=== PATIENT | female | born 1985 | race Asian ===

== ENCOUNTER 2021-08-16 00:05 | Inpatient (IN) ==
[2021-08-17 01:08] LABS: Hematocrit 32 % (35-47); Hemoglobin 10.3 g/dL (12.0-16.0); Mean Corpuscular HGB Conc 33 g/dL (31-36); Mean Corpuscular Hemoglobin 25 pg (27-31); Mean Corpuscular Volume 77 fL (80-97); Mean Platelet Volume 10.9 fL (7.4-10.4); Platelet Count 111 10^3/uL (150-450); Red Cell Distribution Width 16 % (10-15)
[2021-08-17] MEDS ORDERED: Lactated Ringers 1000 ml BAG 1,000 ML IV ONE (01:23)
[2021-08-17] MEDS ORDERED: Buffered Lidocaine 1% SYRIN 1 ml INTRADERM ONE (01:23)
[2021-08-17] MEDS ORDERED: ceFOXitin 2 GM IVPREMIX 2 GM/50 ML BAG IVPB ONE (01:23)
[2021-08-17] MEDS ORDERED: Sodium Citrate/Citric Acid LIQ 15 ML UDC PO ONE (01:23)
[2021-08-17] MEDS ORDERED: Witch Hazel PAD JAR TOPICAL PRN (01:50)
[2021-08-17] MEDS ORDERED: Glycerin ADULT 2.4 gm SUPP PR PRN (01:50)
[2021-08-17] MEDS ORDERED: Dibucaine 1% OINT 28.35 GM TUBE PR PRN (01:50)
[2021-08-17 01:52] LABS: ABS Lymphocytes 1.4 10^3/ul (1.0-4.8); ABS Monocytes 0.6 10^3/ul (0-0.8); Eosinophil % 0.6 %
[2021-08-17] MEDS ORDERED: Lactated Ringers 1000 ml BAG 1,000 ML IV SCH ×2 (02:00)
[2021-08-17] MEDS ORDERED: Oxytocin in LR 20 UNITS/1,000 ML BAG IVPB SCH (02:00)
[2021-08-17] MEDS ORDERED: Ondansetron 4 mg VIAL 2 MG/ML 2 ml VIAL ONE (02:02)
[2021-08-17] MEDS ORDERED: Morphine PF AMP (0.5MG/ML) 5 MG/10 ML AMP ONE (02:02)
[2021-08-17] MEDS ORDERED: fentaNYL 100 mcg/2 ml 50 MCG/ML VIAL ONE (02:02)
[2021-08-17] MEDS ORDERED: Oxytocin 10 UNITS/ML 1 ML VIAL ONE (02:16)
[2021-08-17] MEDS ORDERED: Ondansetron 4 mg VIAL 2 MG/ML 2 ml VIAL IV PRN ×2 (02:17→02:18)
[2021-08-17] MEDS ORDERED: diPHENhydraMINE IV 50 MG/ML 1 ml VIAL (BENADRYL) IV PRN (02:17)
[2021-08-17] MEDS ORDERED: Naloxone 0.4 mg VIAL 0.4 mg/ml 1 ml VIAL IV PRN ×2 (02:17→02:18)
[2021-08-17] MEDS ORDERED: fentaNYL 100 mcg/2 ml 50 MCG/ML VIAL IV PRN (02:18)
[2021-08-17] MEDS ORDERED: Phenylephrine 40 mcg/mL 10mL (400mcg) SYRINGE ONE (02:18)
[2021-08-17] MEDS ORDERED: HYDROmorphone 1 MG/1 ML SYRINGE IV PRN (02:18)
[2021-08-17] MEDS ORDERED: Acetaminophen IV 1 GM/100ML 100 ML IV ONE (02:34)
[2021-08-17] MEDS ORDERED: EPHEDrine (Pressors) 50 MG/ML VIAL ONE (02:36)
[2021-08-17 02:50] LABS: Urine Appearance Clear; Urine Bilirubin Negative (Negative); Urine Blood Negative (Negative); Urine Color Straw; Urine Glucose Negative (Negative); Urine Ketones Negative (Negative); Urine Nitrite Negative (Negative); Urine Protein Negative (Negative); Urine Specific Gravity 1.014 (1.002-1.030); Urine Urobilinogen Negative (Negative)
[2021-08-17 03:59] LABS: Urine Benzodiazepine Screen None Detected (None Detect); Urine Cannabinoids Screen None Detected (None Detect); Urine Opiates Screen None Detected (None Detect)
[2021-08-17] MEDS: Acetaminophen IV 1 GM/100ML 100 ML IV SCH ×4 (08:11→23:50)
[2021-08-17 09:27] LABS: Hematocrit 27 % (35-47); Hemoglobin 8.9 g/dL (12.0-16.0); Mean Corpuscular HGB Conc 32 g/dL (31-36); Mean Corpuscular Hemoglobin 25 pg (27-31); Mean Corpuscular Volume 77 fL (80-97); Red Blood Count 3.53 10^6 /uL (3.70-4.87); Red Cell Distribution Width 16 % (10-15); White Blood Count 7.2 10^3/uL (3.5-10.8)
[2021-08-17 11:22] LABS: ABS Lymphocytes 0.7 10^3/ul (1.0-4.8); ABS Monocytes 0.7 10^3/ul (0-0.8); ABS Neutrophils 5.8 10^3/ul (1.5-7.7); Lymphocyte % 9.3 %; Mean Platelet Volume 11.3 fL (7.4-10.4); Platelet Count 89 10^3/uL (150-450)
[2021-08-18] MEDS ORDERED: Calcium Carb (TUMS) 500 mg CHEW TAB PO PRN (05:54)
[2021-08-18 11:57] LABS: ABS Lymphocytes 0.7 10^3/ul (1.0-4.8); ABS Monocytes 0.3 10^3/ul (0-0.8); ABS Neutrophils 4.1 10^3/ul (1.5-7.7); Eosinophil % 0.3 %; Hematocrit 24 % (35-47); Hemoglobin 7.8 g/dL (12.0-16.0); Lymphocyte % 13.7 %; Mean Corpuscular HGB Conc 32 g/dL (31-36); Mean Corpuscular Hemoglobin 25 pg (27-31); Mean Corpuscular Volume 77 fL (80-97); Mean Platelet Volume 10.6 fL (7.4-10.4); Platelet Count 89 10^3/uL (150-450); Red Blood Count 3.15 10^6 /uL (3.70-4.87); Red Cell Distribution Width 16 % (10-15); White Blood Count 5.1 10^3/uL (3.5-10.8)
[2021-08-20 08:50] VITALS: BP 96/68
== END 2021-08-20 15:35 | disposition home or self-care (01) | DRG 788 ==
LOC: MCHOBOUT 00:05 → MCHOB 08-17 01:19
PROVIDERS: ADMIT Obstetrics & Gynecology; ATTEND Obstetrics & Gynecology